=== PATIENT | female | born 1970 | race Caucasian/White ===

== ENCOUNTER 2022-05-28 09:02 | Outpatient (CLI) | payer OTHER, SELFPAY ==
--- NOTE | 2022-05-28 09:13 | ECG_ITS ---
Measurements Intervals [place] Rate: 95 P: 56 MD: 186 QRS: 69 QRSD: 101 T: 57 QT: 342 QTc: 431 Interpretive Statements SINUS RHYTHM NO PREVIOUS ECG AVAILABLE FOR COMPARISON Electronically Signed On 05-28-2022 10:20:51 CDT by Kendrick Gupta M.D.
== END 2022-05-28 09:03 | disposition home or self-care (01) ==
DX: I49.9 Cardiac arrhythmia, unspecified (principal)
CPT/HCPCS: 93005

== ENCOUNTER 2022-07-06 16:34 | Outpatient (CLI) | payer OTHER, SELFPAY ==
--- NOTE | ~2022-07-06 | MM_ITS ---
EXAMINATION: MM screening [facility] BI w tao HISTORY: Screening mammogram TECHNIQUE: Craniocaudal and mediolateral oblique 3-D tomosynthesis images were obtained and synthetic 2-D images were generated. CAD analysis was submitted and interpreted. COMPARISON: 04/11/2016, 05/20/2015, 10/21/2013 BREAST PARENCHYMAL COMPOSITION: There are scattered areas of fibroglandular density. FINDINGS: No suspicious mass, calcification, or architectural distortion are identified in either king ast to suggest malignancy. There has been no suspicious interval change. IMPRESSION: 1. No mammographic evidence of malignancy. 2. Recommend routine screening mammography in one year. BI-RADS Category 1: Negative Reviewed, dictated and finalized at location A.
== END 2022-07-06 16:35 | disposition home or self-care (01) ==
LOC: ANHIMG 16:37
PROVIDERS: PCP Nurse Practitioner Obstetrics & Gynecology; Visit Provider Nurse Practitioner Obstetrics & Gynecology
DX: Z12.31 Encounter for screening mammogram for malignant neoplasm of breast (principal)
CPT/HCPCS: 77063; 77067

== ENCOUNTER 2022-10-10 03:46 | Day surgery (SDC) | payer OTHER, SELFPAY ==
[2022-09-27 16:13] VITALS: BMI 34.0
[2022-10-10 08:07] VITALS: BP 127/86; PULSE 87; RESP 20; TEMP 36.8; O2SAT 99
--- NOTE | 2022-10-10 08:08 | SUR.PREOP ---
Pts LMP 11/2021. Per Dr Madera no UPreg needed.
[2022-10-10] MEDS: LACTATED RINGERS 1,000 ML 150 ML IV CONT (08:10)
--- NOTE | 2022-10-10 08:25 | PM.HPGS ---
History of Present Illness History of Present Illness Consent: Risks, benefits, and alternatives have been discussed and questions answered. Patient agrees to proceed with procedure. Chief complaint: neoplasm screening Narrative: Kasey Villeda is a 52 year old female Presents for screening colonoscopy. Patient's current weight appetite and bowel movements are normal. She denies abdominal pain. Patient has had no bleeding. Family history noncontributory. Patient does have a past medical history of a kidney carcinoma and has had hernia repair in the past. Review of Systems Review of Systems: review of systems noncontributory. [facility] Family History Family History (Updated 11/30/17 @ 14:18 by DOCTOR UNKNOWN) Father Hypertension Family history of lymphoma Patient's father is in good health Family history of arthritis Mother Hypertension Patient's mother is in good health Family history of arthritis Sibling Patient's sister is in good health Patient's brother is in good health Other Family history of cardiovascular disease Family history of malignant neoplasm Social History Social History Smoking status: Never smoker Second hand tobacco smoke exposure: No Alcohol intake: current Drinks per week: 2 Substance use type: does not use Living arrangements: with family Spiritual care concerns: No Meds Home Medications and Allergies Home Medications Medication Instructions Recorded Confirmed Type cholecalciferol (vitamin D3) 50 50 mcg PO 3XW 09/27/22 10/10/22 History mcg (2,000 unit) tablet (Vitamin D3) cinnamon bark 500 mg capsule 500 mg PO DAILY 09/27/22 10/10/22 History (Cinnamon) hydrochlorothiazide 12.5 mg tablet 12.5 mg PO DAILY 09/27/22 10/10/22 History magnesium 500 mg tablet 500 mg PO DAILY 09/27/22 10/10/22 History meloxicam 15 mg tablet 15 mg PO DAILY 09/27/22 10/10/22 History semaglutide (weight loss) 1 mg/0.5 1 mg subcut WEEKLY 09/27/22 10/10/22 History mL subcutaneous pen injector vitamin B complex 1 tablet PO DAILY 09/27/22 10/10/22 History Allergies Allergy/AdvReac Type Severity Reaction Status Date / Time adhesive tape Allergy Intermediate Other Verified 10/10/22 08:06 Vital Signs Vital Signs - 24 hr 10/10/22 08:07 Temperature 98.2 F Pulse Rate 87 Respiratory Rate 20 Blood Pressure 127/86 Pulse Oximetry 99 Oxygen Delivery Room Air Exam Narrative: Physical exam reveals patient to be alert. Vital signs stable. HEENT exam is unremarkable. Patient is anicteric. Lungs are clear to auscultation and percussion. Heart is without murmur or extra sounds. Abdomen bowel sounds are present soft nontender with no organomegaly. Digital external rectal exam is normal. Assessment and Plan Assessment and plan (1) Encounter for screening colonoscopy: Code(s): Z12.11 - Encounter for screening for malignant neoplasm of colon Status: Acute Assessment and Plan: Patient presents today for screening colonoscopy. She appears to be at average risk for colon polyps. Further recommendations may be given after endoscopy.
--- NOTE | 2022-10-10 08:54 | P.PNAN_ITS ---
Anes - Initial Pre Proc Eval Procedure: Operation Date: 10/10/22 09:30 Proposed Procedures p Screening Colonoscopy - Harley Acosta MD Date/Time: 10/10/22 08:54 Surgeon: Harley Acosta MD Pre Op Diagnosis: neoplasm screening Patient Data Age: 52 Gender: F Height: 1.68 m Weight: 94.3 kg Last Vital Signs Temp 98.2 F 10/10/22 08:07 Pulse 87 10/10/22 08:07 Resp 20 10/10/22 08:07 BP 127/86 10/10/22 08:07 Pulse Ox 99 10/10/22 08:07 O2 Del Method Room Air 10/10/22 08:07 Allergies Allergy/AdvReac Type Severity Reaction Status Date / Time adhesive tape Allergy Intermediate Other Verified 10/10/22 08:06 Home Medications Medication Instructions Recorded Confirmed Type cholecalciferol (vitamin D3) 50 50 mcg PO 3XW 09/27/22 10/10/22 History mcg (2,000 unit) tablet (Vitamin D3) cinnamon bark 500 mg capsule 500 mg PO DAILY 09/27/22 10/10/22 History (Cinnamon) hydrochlorothiazide 12.5 mg tablet 12.5 mg PO DAILY 09/27/22 10/10/22 History magnesium 500 mg tablet 500 mg PO DAILY 09/27/22 10/10/22 History meloxicam 15 mg tablet 15 mg PO DAILY 09/27/22 10/10/22 History semaglutide (weight loss) 1 mg/0.5 1 mg subcut WEEKLY 09/27/22 10/10/22 History mL subcutaneous pen injector vitamin B complex 1 tablet PO DAILY 09/27/22 10/10/22 History Patient hx anesthesia problems: none Family hx anesthesia problems: none Results Review: All pre-operative results and documents have been reviewed as part of the pre- operative evaluation. [facility] Family History Family History (Updated 11/30/17 @ 14:18 by DOCTOR UNKNOWN) Father Hypertension Family history of lymphoma Patient's father is in good health Family history of arthritis Mother Hypertension Patient's mother is in good health Family history of arthritis Sibling Patient's sister is in good health Patient's brother is in good health Other Family history of cardiovascular disease Family history of malignant neoplasm Social History Social History Smoking status: Never smoker Second hand tobacco smoke exposure: No Alcohol intake: current Drinks per week: 2 Substance use type: does not use Living arrangements: with family Spiritual care concerns: No Anes - Eval Final PreProcedure Day of Procedure 10/10/22 08:54 Patient weight: obese Heart: regular rate and rhythm Lungs: clear to auscultation Airway: Mallampati scale class III Neurological: alert and oriented Last oral intake: >/= 8 hours ASA classification: III Emergent: no Anesthetic plan: proceed Anesthesia type and monitoring: general GIVS and standard monitoring Results Review: All pre-operative results and documents have been reviewed as part of the pre- operative evaluation. Informed Consent: The patient's anesthetic plan and its attendant risks and benefits were discussed with the patient/family/POA. Questions were solicited and answers provided to the satisfaction of the patient/family/POA.
[2022-10-10 09:52] VITALS: BP 115/77; PULSE 86; RESP 25; O2SAT 100
[2022-10-10 10:02] VITALS: BP 128/86; PULSE 82; RESP 16; O2SAT 100
[2022-10-10 10:12] VITALS: BP 116/83; PULSE 76; RESP 14; O2SAT 100
== END 2022-10-10 10:20 | disposition home or self-care (01) ==
PROVIDERS: PCP Internal Medicine; Referring Provider Nurse Practitioner Obstetrics & Gynecology; Visit Provider Internal Medicine Gastroenterology
PROC: 0DJD8ZZ Inspection of Lower Intestinal Tract, Via Natural or Artificial Opening Endoscopic (ICD-10-PCS; CPT 45378; principal; 2022-10-10 09:30)
DX: Z12.11 Encounter for screening for malignant neoplasm of colon (principal); K64.8 Other hemorrhoids; K57.30 Diverticulosis of large intestine without perforation or abscess without bleeding; Z79.899 Other long term (current) drug therapy; E66.9 Obesity, unspecified; Z85.528 Personal history of other malignant neoplasm of kidney; Z68.33 Body mass index [BMI] 33.0-33.9, adult
CPT/HCPCS: 45378; J2704; J7120

== ENCOUNTER 2023-02-15 16:34 | Outpatient (CLI) | payer OTHER, SELFPAY | END 2023-02-15 16:35 | disposition home or self-care (01) | PROVIDERS: PCP Internal Medicine; Visit Provider Obstetrics & Gynecology | DX: R35.0 Frequency of micturition (principal) | CPT/HCPCS: 87086; 87088 ==

== ENCOUNTER 2024-03-20 08:36 | Outpatient (CLI) | payer OTHER, SELFPAY ==
--- NOTE | ~2024-03-20 | MM_ITS ---
EXAMINATION: MM screening [facility] BI w tao HISTORY: Screening TECHNIQUE: Craniocaudal and mediolateral oblique 3-D tomosynthesis images were obtained and synthetic 2-D images were generated. CAD analysis was submitted and interpreted. COMPARISON: Comparison to multiple prior studies sequentially, with oldest reviewed study dated 05/19. BREAST PARENCHYMAL COMPOSITION: Not dense: There are scattered areas of fibroglandular density. FINDINGS: There is no evidence of suspicious mass, calcification, or architectural distortion to sugg est malignancy in either breast. There has been no suspicious interval change. IMPRESSION: 1. No mammographic evidence of malignancy. 2. Recommend routine screening mammography in one year. BI-RADS Category 1: Negative Reviewed, dictated and finalized at location A. [facility]
--- OUTSIDE RECORDS SUMMARY | 2024-03-21 21:58 | XMS_ITS | Data Portability ---
Author Organization [facility] [place] Address [address] [place] [address] Care Team Providers Care Liner Inserter Name Role Phone [facility] Primary Care Provide r Assessment Encounter Date Assessment Date Assessment LastModified by Organization Details LastModified Time 05/05/2022 05/05/2022 Annual gynecological exam performed. Patient will come back in a year unless there are new symptoms. [email or web address] Not available 05/05/2022 09:39:21 Plan of Treatment Reminders Order Date Submit Date Provider Last Modified By Organization Details Last Modified Time Details Appointments None record ed. Lab urinal ysis, dipsti ck 2022 023 [facility], [address], [address], [place], [address], 3 13:09:04 cultur e, urine 2022 023 [facility] (Lab), [address], [place], [address], 3 14:20:21 Referral gastro entero logist referr al - Screen ing for malign ant neopla sm of colonP lease contac t this patien t to schedu le an appoin tment. Attach ed are the patien ts demogr aphics and most recent office visit notes. If you have any questi ons, please contac t me at [phone]. Thank you,Ashely slater, Referr al's 2022 023 [facility], [address], [address], [place], [address], 3 05:01:14 Procedures None record ed. Surgeries None record ed. Imaging MAMMO, screen ing, bilate ral 2022 023 [facility], [address], [place], [address], 3 05:01:00 Medication Orders None record ed. Patient TargetsNo targets recorded. Patient InstructionsNo instructions recorded. 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 for Screening for malignant neoplasm of colon Screening for malignant neoplasm of colon Screening for malignant neoplasm of colonPlease contact this patient to schedule an appointment.Attached are the patients demographics and most recent office visit notes.If you have any questions, please contact me at [phone].Thank you,Harriet Referral's Referring Physician: Magdalena Castro, VAC PRESS OPERATOR, Encounter Date: 05/05/2022 Results Created Date Observation Date Name Description Value Unit Range Abnormal Flag Note LastModifiedBy Organization Detail LastModifiedTime 05/06/19 23 05/05/2022 IMAGE GUIDE D PAP AND HPV REGAR DLESS image guided Pap, HPV regardless of Pap result SEE RESULT S BELOW CASE REPOR T: Cytol ogy Gynec ologi alexandru Repor t Case: [id number] Autho jerzy whaley Provi vanessa: Gavin Palacios Colle cted: 05/05 1239 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 Elect arnaldo haley elsa d by Ron Oden am, CT on 2022 at 12:22 PM ----- ----- ----- ----- ----- ----- ----- ----- ----- ----- ----- ----- ----- ----- ----- ----- ----- ---- HPV RESUL TS: HPV mRNA E6/E7 : No HPV mRNA Detec savannah NOTE: This high risk HPV mRNA assay detec ts fourt een high- risk HPV types (16, 18, 31, 33, 35, 39, 45, 51, 52, 56, 58, 59, 66, 68) witho ut diffe renti ation . COMME NT: Note: This speci men was revie wed by a Cytot echno logis t and/o r Patho logis t (as indic ated in this repor t) after evalu ation using the Thinp rep Imagi ng Syste m. CLINI ALEXANDRU INFOR MATIO N: Menst rual Statu s: LMP (if appli cable ): Clini alexandru Histo ry/Pr eviou s Pap: Type of Neopl zaki (if appli cable ): Signi fican t Clini alexandru Findi ngs: Other Histo ry: Hormo jerri (if appli cable ): PAP EDUCA MELYSSA L NOTE: The Pap Test is a scree alcides test with an inher ent false negat jennifer rate. Liqui d-bas ed sampl ing may decre ase, but will not elimi kallie, false negat jennifer resul ts. A negat jennifer resul t does not precl ude the prese nce and/o r devel opmen t of disea se, since the prese nce of abnor mal cells in the sampl e depen ds on the locat ion of the lesio n and sampl ing techn ique. Ceasar nued regul ar scree alcides is the best metho d of cance r preve ntion . If repor savannah cytol ogic findi ng do not corre late with physi alexandru and/o r histo rical findi ngs, fur er inves tigat ion is recom vishal d, as clini kerwin ramos nted. Not Available [facility] (Lab) [address], [place], [address], 05/10/2022 13:25:17 12/23/19 23 12/22/2022 CULTU RE: URINE result report SEE RESULT S BELOW Test: Cultu re: Urine Speci men Sourc e: Urine Voide d Speci men Type: Urine Speci men Date: 12/22 5:13 PM Resul t Date: 12/24 6:10 AM Resul t Statu s: Final resul t Abnor mal: No Resul ting Lab: [facility] [address] [facility] [address] Tel: CULTU RE ----- ----- ----- --- No growt h in 1 day (dete ction level of 10,00 0 colon ies / ml.) Not Available [facility] (Lab) [address] , [place], [address], 12/24/2022 07:15:40 02/16/20 23 02/15/2023 urina lysis , dipst ick Leukocytes Negati ve Not Available [place] [address], [place], [address], 02/15/2023 13:08:15 02/16/20 23 02/15/2023 urina lysis , dipst ick Nitrite Negati ve Not Available [place] [address], [place], [address], 02/15/2023 13:08:15 02/16/20 23 02/15/2023 urina lysis , dipst ick Urobilinogen Negati ve Not Available [place] [address], [place], [address], 02/15/2023 13:08:15 02/16/20 23 02/15/2023 urina lysis , dipst ick Protein Negati ve Not Available [place] [address], [place], [address], 02/15/2023 13:08:15 02/16/20 23 02/15/2023 urina lysis , dipst ick pH 6 Not Available [place] [address], [place], [address], 02/15/2023 13:08:15 02/16/20 23 02/15/2023 urina lysis , dipst ick Blood trace Not Available [place] [address], [place], [address], 02/15/2023 13:08:15 02/16/20 23 02/15/2023 urina lysis , dipst ick Specific [place] 1.015 [facility] Available [facility] [address], [place], [address], 02/15/2023 13:08:15 02/16/20 23 02/15/2023 urina lysis , dipst ick Ketone Negati ve Not Available [place] [address], [place], [address], 02/15/2023 13:08:15 02/16/20 23 02/15/2023 urina lysis , dipst ick Bilirubin Negati ve Not Available [place] [address], [place], [address], 02/15/2023 13:08:15 02/16/20 23 02/15/2023 urina lysis , dipst ick Glucose Negati ve Not Available [place] [address], [place], [address], 02/15/2023 13:08:15 02/16/20 23 02/15/2023 urina lysis , dipst ick Appearance Clear Not Available [facility] carlos [address], [place], [address], 02/15/2023 13:08:15 02/16/20 23 02/15/2023 urina lysis , dipst ick Color Yellow Not Available [place] [address], [place], [address], 02/15/2023 13:08:15 Result Notes None recorded. Procedures Surgical History Date Name Laterality Status Provider Name and Address Organization Details Recorded Time 04/30/19 14 Endometr ablate thermal completed Magdalena Castro [facility] [address], [place], [address], [facility] 05/05/2022 09:48:48 04/30/19 14 procedure on kidney completed NEETU Perry [address], [place], [address], [facility] 12/05/2022 12:28:16 04/30/19 14 hernia repair completed Magdalena Castro [facility] [address], [place], [address], [facility] 05/05/2022 09:49:50 tonsillectomy completed Eliza Rojas [facility] 05/05/2022 09:20:33 procedure on knee completed Eliza cline [facility] 05/05/2022 09:41:32 hernia repair completed Anny Bernard [facility] 12/22/2022 16:35:34 Imaging Results None recorded. Procedure Notes None recorded. Medical Equipment None Reported. Allergies Allergen ID Allergen Name Allergen Category Reaction Reaction Severity Criticality Documentation Date Start Date Code Code System Note Provider Name and Address Organization Details Recorded Time adhesive environme nt,medica tion Not available Not available Not available 05/05/2022 [id number] UNK Eliza Rojas [facility] 09:21:52 Medications Name Sig Start Date Stop Date Status Note LastModified by Organization Details LastModified Time cyclobenzap rine 10 mg tablet active Not Available Not Available Not Available hydrocodone 5 mg-acetamin ophen 325 mg tablet 12/22 completed Not Available Not Available Not Available meloxicam 15 mg tablet active Not Available Not Available Not Available phentermine 37.5 mg tablet 05/05 completed Not Available Not Available Not Available ciprofloxac in 500 mg tablet TAKE 1 TABLET BY MOUTH EVERY 12 HOURS FOR 7 DAYS 12/22 completed Not Available Not Available Not Available tramadol 50 mg tablet active Not Available Not Available No t Available docusate sodium 100 mg capsule TAKE 1 CAPSULE BY MOUTH TWICE DAILY active Not Available Not Available No t Available nitrofurant oin monohydrate /macrocryst als 100 mg capsule TAKE 1 CAPSULE BY MOUTH EVERY 12 HOURS FOR 7 DAYS 12/22 completed Not Available Not Available Not Available Aleve active Not Available Not Availa ble Not Available hydrochloro thiazide 12.5 mg tablet active Not Available Not Available Not Available sodium,pota ssium,mag sulfates 17.5 gram-3.13 gram-1.6 gram oral soln MIX AND DRINK DIRECTED 12/22 completed Not Available Not Available Not Available semaglutide active Not Available Not A vailable Not Available Ubrelvy 100 mg tablet active Not Available Not Available No t Available Vitals Date Recorded Body height Body mass index (BMI) Body weight Systolic blood pressure Diastolic blood pressure Provider Name and Address Organization Details Last Updated DateTime 05/05/2022 167.64 cm 36.3 kg/m2 213616.2 8 g 130 mm[Hg] 82 mm[Hg] Eliza Rojas [facility] 3 09:39:33 Date Recorded Body height Body mass index (BMI) Body weight Systolic blood pressure Diastolic blood pressure Provider Name and Address Organization Details Last Updated DateTime 12/22/2022 167.64 cm 33.8 kg/m2 73423.96 g 127 mm[Hg] 78 mm[Hg] Anny Bernard [facility] 16:34:11 Social History Question Answer Notes LastModified by Organizat ion Details LastModified Time Tobacco Smoking Status Never Smoker Eliza alves [facility] 05/05/2022 09:20:51 What Is Your Level Of Alcohol Consumption? Occasional Information not available 05/05/2022 Do You Use Any Illicit Or Recreational Drugs? No Information not available 05/05/2022 Has Tobacco Cessation Counseling Been Provided? No Information not available 05/05/2022 Do You Or Have You Ever Used Any Other Forms Of Tobacco Or Nicotine? No Information not available 05/05/2022 Sex: Unknown Functional Status None recorded. Mental Status None recorded. Family History Relationship Description Onset Age of this Age Resolved Age Notes LastModified by Organization Details LastModified Time Mother Hypertensive disorder [email or web address] Not available 2022 09:40:55 Father Hypertensive disorder [email or web address] Not available 2022 09:40:55 Medical History Condition Response Allergies (Food, seasonal, environmental ) N Other N Breast Cancer N Drug/Latex Allergies/Reactions N Blood Transfusion N Lung Disease N Dermatologic Disorders N Defects or Inherited Disease N Breast Problem N Gestational Diabetes N Hematologic disorders N Anesthesia Complications N History of STI N Deep Vein Thrombosis N Polycystic ovary syndrome Y Anxiety Disorder N Autoimmune disease N Arthritis Y Infertility N Polyps N Acid Reflux (GERD) N History of abnormal pap N Cancer N Stroke N Varicosities N Neurologic/Epilepsy N Endometriosis N High Cholesterol N Headaches Y Fibromyalgia N Kidney Disease N Heart Problems N Kidney or Bladder Problems N Thyroid Problems N GI Problems N Eating Disorder N Anemia N Art (IVF or FET) N Psychiatric Illness N Ovarian Cancer N Diabetes N Pulmonary (TB, Asthma) N Hepatitis/Liver Disease N No Past Medical History N Eczema N Urinary Tract Infection N Abuse/Domestic Violence N Asthma N Trauma/Violence N Depression/ depression N Heart Disease N Pre-Eclampsia N Hypertension N Osteoporosis N Thrombophilias N Gynecological History Statement/Question Response If Post Menopausal, Age at Menopause 52 Date of Last Colonoscopy Date of Last Mammogram Sexually Active? Y STIs/STDs N Menses Monthly N Age of first menstrual cycle 11 HPV Vaccine N Sexual Problems? N Current Control Method Ablation Obstetrics History GPAL:G 1 P 0 0 1 0 Type Value Spontaneous 1 Total 1 Past Encounters Encounter ID Performer Location Encounter Start Date Encounter Closed Date Diagnosis/Indication Diagnosis SNOMED-CT Code Diagnosis ICD10 Code Diagnosis Note [id number] Magdalena Castro , [facility] [address] [place] [address] 05/05/2022 09:26:43 05/05/2022 11:05:09 Gynecologic examination 12219805 Z01.419 Take Calcium with Vitamin D 12-1500mg daily. Do monthly self breast exams. It is advised to get annual flu shot in the fall and she could obtain at [facility] or [facility] care clinic. If you haven't received the Tdap vaccine in the last 10 years you should obtain one as well. Have mammogram yearly, bone density every 2-3 years and colonoscop y every 5-10 years depending on findings and history. Engage in daily exercise of low impact aerobic exercise 45-60 minutes 4-5 times weekly. Avoid tobacco and illicit drugs as well as using moderation with alcohol intake less than 1-2 8 oz beverages daily. This lifestyle behavior pattern will lead to less health conditions and longer life span. If BMI greater than 25 weight watchers or dietary consult advised. Questions have been answered. Patient appears to understand instructio ns, but if you have any further questions call or respond to this email Pap/hpv sent STD Screen declined Genetic Screen discussed Colon Screen Dexa Screen Routine LabsMammo ordered Screening mammography 24 021172 Z12.31 Screening for malignant neoplasm of colon 243134930 Z12.11 [id number] Beatrizkamlesh Scott [place] [address] [address] 12/05/2022 12:00:56 12/05/2022 13:28:37 Acute urinary tract infection 971459610 N39.0 Pt in our office today on our lab schedule to check her urine because she was complainin g of urinary frequency and discomfort towards the end of urination. Brought pt in for an in office urine dip and urine showed +1 leukocytes and trace blood. Will send off for urine culture for confirmati on and can send out Macrobid while we are waiting for results per LL. Pt has hernia repair tomorrow and was made aware to call her surgeon KIRA to let them know of findings and to confirm if they are okay with her taking Macrobid or not prior to procedure. Pt verbalized understand ing. MARITZA andrews [id number] NEEUT Perry [place] [address] [address] 12/22/2022 16:27:05 12/22/2022 17:51:02 Urinary symptoms 730661643 R39.9 UA today wnlcx sentrecomm ended decreasing caffeine intakewill update pt with cx results when availablei f neg cx and symptoms persist, recommend f/u with urology given her hx Patient is to contact office or go to nearest ED/Urgent care if fever >/= 100.1, pain, excessive bleeding, unusual drainage or swelling in area of concern; or experienci ng worsening sx's or new onset of concerning sx's. Understand ing verbalized . All questions answered to patient satisfacti on. Time spent in visit is a total of 18 mins with at least 50% of visit consisting of counseling and review of plan of care. [id number] NEETU Perry [place] [address] [address] 02/15/2023 12:40:31 02/15/2023 14:10:35 Urinary symptoms 813890395 R39.9 Increased frequency of urination 459939562 R35.0 Health Concerns Section Related Observation LastModified by Organization Detai ls LastModified Time None Recorded Concern Status LastModified by Organization Details LastModified Time None Recorded Advance Directives Directive None Recorded Payers Encounter Date Sequence Insurance Name Policy Number Policy Rutherford Covered Member ID Rutherford Member ID Guarantor Name 05/05/2022 1 [employer] - OPEN ACCESS PLUS [id number] [place] [id number] Kasey [facility] 12/05/2022 1 [employer] [id number] [place] Zesalvatore [id number] [facility] 12/22/2022 1 [employer]NAG[employer] [id number] [place] [id number] [facility] 02/15/2023 1 [employer] [id number] [place] [id number] Kasey Ronal Notes Date Note Type Note Provider Name and Address Organization Details Recorded Time 05/05/2022 text/html Annual Social Services Manager Post-MenopausalReport ed bypatient.Menopausal Symptoms:no menopausal symptoms; normal vaginal lubrication Vaginal Bleeding:history of menopause having occurred; no history of post menopausal bleeding Urinary Symptoms:no hematuria; no incontinence; no nocturia; no urinary frequency Vulva:no genital lesion; no vulvar atrophy Vagina:normal vaginal discharge; no vaginal atrophy Breast:no breast lump; no nipple discharge; no breast pain Sexual Complaints:no sexual complaints Psychological Symptoms:no depression; no anxiety Preventive Measures:encourage regular mammograms starting age 40; encourage self breast examination; encourage regular exercise; encourage no tobacco use; needs to schedule mammogram; history of recent colonoscopy NEETU Simeon- [address], [place], [address], [facility] 05/05/2022 10:27:26 12/22/2022 text/html 52yopresents for evaluation of urinary pressure/urgencyrecen tly treated for a UTI, completed medication 2 days ago. Symptoms resolved but still has some lingering pressure with urination and urgency.Denies any burning, odors, flank pains, or vaginal symptomsrecently had a hernia repair at the beginning of the monthdenies any new partnersdrinks coffee daily hx of renal carcinoma in 2014 NEETU Perry [address], [place], [address], [facility] 12/22/2022 17:47:52 OBGyn Episode Ob Episode Information Episode Created Date Number of Fetuses Patient Bloodtype Patient rh Status Prepregnancy Weight lbs Domestic Partner Domestic Partner Phone Father Name Lifestyle Director Status 05/06/19 23 1 CLOSED Fetus Data First Name Last Name Admitted to NICU Weight (g) Sex Living Outcome Pediatric Complications Fetus ID Race Codes Race Delivery Type , Spontane ous [id number] Luke Calculation Initial Luke Date Initial Exam Date Initial Exam Provider Initial Ultrasound Date Last Menstrual Period Date Ultra Sound Weeks Gestation 0 Eighteen To Twenty Week Luke Update Ultra Sound Date Fundal Height At Umbil Quickening Date Ultra Sound Latest Weeks Gestation Final Luke Confirmed By Final Luke Confirmed Date Final Luke Date Ultra Sound Latest Days Gestation 0 0 Menstrual History Last Menstrual Date Menses Monthly On Bcp Conception Prior Menses Frequency Hcg Plus Date Menarche Onset Age Delivery Information Delivery Date Delivery Type Labor Anesthesia Weeks Gestation Incision Type Labor Labor Length Hrs Delivered By Post Complications Tubal Sterilization Discharge Date Comments Discharge Information Feeding Method Contraceptive Method Maternal HG B and HCT Levels
== END 2024-03-20 08:37 | disposition home or self-care (01) ==
LOC: ANHIMG 08:41
PROVIDERS: PCP Nurse Practitioner Family; Visit Provider Nurse Practitioner Family
DX: Z12.31 Encounter for screening mammogram for malignant neoplasm of breast (principal)
CPT/HCPCS: 77063; 77067